=== PATIENT | female | born 2000 | race Caucasian/White ===

== ENCOUNTER 2024-12-14 18:10 | Emergency (ER) | payer OTHER ==
[2024-12-14] MEDS ORDERED: Silver Sulfadiazine 1% Crm 50 GM Tube TOP ONE ×2 (18:11→18:33)
== END 2024-12-14 19:10 | disposition home or self-care (01) ==
LOC: FB.ED 18:10
DX: T23.232A Burn of second degree of multiple left fingers (nail), not including thumb, initial encounter (principal); X12.XXXA Contact with other hot fluids, initial encounter
CPT/HCPCS: 16020; 99283; A9270